=== PATIENT | female | born 1945 | race Two or more races ===

== ENCOUNTER 2022-01-15 07:17 | Outpatient (CLI) | payer OTHER | END 2022-01-15 07:19 | disposition home or self-care (01) | LOC: NUCLEAR 07:17 | PROVIDERS: ATTEND Internal Medicine Cardiovascular Disease | DX: I20.9 Angina pectoris, unspecified (principal); R06.02 Shortness of breath; R06.00 Dyspnea, unspecified | CPT/HCPCS: 78452; 93017; A9500; J1250 ==